=== PATIENT | male | born 1965 | race African-American/Black ===

== ENCOUNTER 2023-11-21 13:22 | Inpatient (IN) | payer OTHER ==
[2023-11-21 15:40] LABS: BASO % 0.6 % (0-2.0); EOS % 0.7 % (0-4.5); HEMATOCRIT 29.3 % (35.4-49); HEMOGLOBIN 9.1 GM/dL (11.7-16.9); LYMPH % 18.5 % (8-40); MCH 24.4 pg (25.7-33.7); MCHC 31.2 g/dl (32.0-35.9); MEAN CELL VOLUME 78.1 fl (80-96); MEAN PLT VOLUME 7.1 fl (7.5-11.1); MONO % 15.8 % (3.8-10.2); NEUT % 64.4 % (42.8-82.8); PLATELET COUNT 289 10^3/uL (134-434); RBC 3.75 M/mm3 (4.00-5.60); RDW 18.2 % (11.9-15.9); WHITE BLOOD COUNT 14.2 K/mm3 (4.0-10.0)
[2023-11-21 16:11] LABS: POTASSIUM 4.8 mmol/L (3.5-5.1)
[2023-11-21 16:12] LABS: CALCIUM 11.4 mg/dL (8.5-10.1)
[2023-11-21 16:13] LABS: ALBUMIN 2.4 g/dl (3.4-5.0)
[2023-11-21 16:16] LABS: CREATININE 5.5 mg/dL (0.55-1.3)
[2023-11-21 16:17] LABS: TOT PROT 6.3 g/dl (6.4-8.2)
[2023-11-21 16:18] LABS: BILIRUBIN,TOTAL 0.2 mg/dL (0.2-1)
[2023-11-21] MEDS ORDERED: DIPHTH,PERTUSS(ACELL),TET 0.5 ML DISP.SYRIN IM ONE ×2 (18:43→21:13)
[2023-11-21] MEDS: DIPHTH,PERTUSS(ACELL),TET 0.5 ML DISP.SYRIN IM ONE (21:19)
[2023-11-21 22:56] VITALS: BMI 19.8
[2023-11-21] MEDS: GABAPENTIN 300 MG CAPSULE PO SCH (23:12)
[2023-11-21] MEDS: cloNIDine HCL 0.1 MG TABLET PO SCH (23:12)
[2023-11-21] MEDS: clonazePAM 0.5 MG TABLET PO SCH (23:12)
[2023-11-21] MEDS: ATORVASTATIN CA 10 MG TABLET (FP) PO SCH (23:12)
[2023-11-21] MEDS: MYCOPHENOLATE MOFETIL 500 MG TABLET PO SCH (23:27)
[2023-11-21] MEDS: TACROLIMUS ANHYDROUS 5 MG CAPSULE PO SCH (23:27)
[2023-11-22 08:32] LABS: BASO % 0.4 % (0-2.0); EOS % 1.5 % (0-4.5); HEMATOCRIT 28.5 % (35.4-49); LYMPH % 19.4 % (8-40); MCH 24.6 pg (25.7-33.7); MCHC 31.7 g/dl (32.0-35.9); MEAN CELL VOLUME 77.5 fl (80-96); MEAN PLT VOLUME 7.4 fl (7.5-11.1); MONO % 16.9 % (3.8-10.2); NEUT % 61.8 % (42.8-82.8); PLATELET COUNT 291 10^3/uL (134-434); RBC 3.67 M/mm3 (4.00-5.60); RDW 18.3 % (11.9-15.9); WHITE BLOOD COUNT 13.6 K/mm3 (4.0-10.0)
[2023-11-22 08:52] LABS: POTASSIUM 4.2 mmol/L (3.5-5.1)
[2023-11-22 08:54] LABS: ALBUMIN 2.3 g/dl (3.4-5.0); BLOOD UREA NITROGEN 40.8 mg/dL (7-18)
[2023-11-22 08:57] LABS: CREATININE 5.6 mg/dL (0.55-1.3)
[2023-11-22 08:59] LABS: BILIRUBIN,TOTAL 0.3 mg/dL (0.2-1)
[2023-11-22] MEDS ORDERED: FUROSEMIDE 40 MG TABLET (FP) PO SCH (10:00)
[2023-11-22] MEDS: PANTOPRAZOLE 20 MG TABLET PO SCH (15:05)
[2023-11-22] MEDS: predniSONE 10 MG TABLET (UD) PO SCH (15:05)
[2023-11-22] MEDS: SODIUM CHLORIDE 0.45% 1,000 ML IV SCH (15:17)
[2023-11-22] MEDS: IRON SUCROSE INJECTION 200 MG in SODIUM CHLORIDE 100 ML IVPB ONE (15:18)
[2023-11-22] MEDS: POLYETHYLENE GLYCOL (HEALTHYLAX) 3350 17 GM PACKET PO SCH (15:18)
[2023-11-22] MEDS: ACETAMINOPHEN 325 MG TABLET (FP) PO PRN (18:31)
[2023-11-22] MEDS: PIPERACILLIN/TAZOB 2.25 GM 2.25 GM in DEXTROSE 5%-WATER - 50 ML IVPB SCH (19:55)
[2023-11-22 20:12] LABS: EPI CELLS 11 /uL (0-25.1); HYALINE CASTS 2 /uL (0-3.1); URINE APPEARANCE TURBID; URINE BACTERIA >9,000 /uL (0-1359); URINE BILIRUBIN NEGATIVE (NEGATIVE); URINE COLOR YELLOW; URINE GLUCOSE (UA) NEGATIVE (NEGATIVE); URINE KETONE TRACE (NEGATIVE); URINE LEUK ESTERASE 3+ (NEGATIVE); URINE NITRITE NEGATIVE (NEGATIVE); URINE PROTEIN 3+ (NEGATIVE); URINE RBC 804 /uL (0-23.9); URINE UROBILINOGEN 0.2 mg/dL (0.2-1.0); URINE WBC 3270 /uL (0-25.8)
[2023-11-23] MEDS: IRON SUCROSE INJECTION 200 MG in SODIUM CHLORIDE 100 ML IVPB ONE (10:47)
[2023-11-23 12:59] LABS: HEMATOCRIT 25.9 % (35.4-49); HEMOGLOBIN 8.3 GM/dL (11.7-16.9); MCH 24.7 pg (25.7-33.7); MCHC 32.1 g/dl (32.0-35.9); MEAN CELL VOLUME 76.9 fl (80-96); MEAN PLT VOLUME 7.4 fl (7.5-11.1); PLATELET COUNT 258 10^3/uL (134-434); RBC 3.36 M/mm3 (4.00-5.60)
[2023-11-23 13:43] LABS: POTASSIUM 4.4 mmol/L (3.5-5.1)
[2023-11-23 13:45] LABS: CALCIUM 10.1 mg/dL (8.5-10.1)
[2023-11-23 13:46] LABS: ALBUMIN 2.2 g/dl (3.4-5.0); BLOOD UREA NITROGEN 49.4 mg/dL (7-18)
[2023-11-23 13:49] LABS: CREATININE 6.4 mg/dL (0.55-1.3)
[2023-11-23 13:51] LABS: BILIRUBIN,TOTAL 0.3 mg/dL (0.2-1); TOT PROT 5.6 g/dl (6.4-8.2)
[2023-11-24] MEDS: IRON SUCROSE INJECTION 200 MG in SODIUM CHLORIDE 100 ML IVPB ONE (10:04)
[2023-11-24] MEDS: CEFTRIAXONE 1 GM in DEXTROSE 5%-WATER - 50 ML IVPB SCH (17:00)
[2023-11-24 20:46] VITALS: RESP 18
[2023-11-25 08:59] VITALS: BP 149/76; PULSE 140; TEMP 97.7
[2023-11-25] MEDS: TAMSULOSIN HCL 0.4 MG CAP PO SCH (09:09)
[2023-11-25] MEDS ORDERED: SODIUM CHLORIDE 0.45% 1,000 ML IV SCH (15:15)
== END 2023-11-25 14:58 | DRG 690 ==
LOC: JER 13:22 → JERBED 16:02 → J6S 21:46
PROVIDERS: ADMIT Internal Medicine; ATTEND Internal Medicine
DX: N39.0 Urinary tract infection, site not specified (principal); Z94.0 Kidney transplant status; I69.351 Hemiplegia and hemiparesis following cerebral infarction affecting right dominant side; Z68.1 Body mass index [BMI] 19.9 or less, adult; R64 Cachexia; N18.9 Chronic kidney disease, unspecified; D63.8 Anemia in other chronic diseases classified elsewhere; E78.5 Hyperlipidemia, unspecified; R07.9 Chest pain, unspecified; E83.52 Hypercalcemia; I12.9 Hypertensive chronic kidney disease with stage 1 through stage 4 chronic kidney disease, or unspecified chronic kidney disease
CPT/HCPCS: 36415; 70450-TC; 71045-TC-FY; 72125-TC; 73562-TC-LT-FY; 73590-TC-LT-FY; 74176-TC; 76776-TC; 80053; 80197; 81003; 82728; 83540; 83550; 83735; 84443; 84484; 85025; 85027; 87040; 87086; 87186; 90715; 93005; 93010; 93306-TC; 93975; 97162-GP; 99285-25; J1756; J7517

== ENCOUNTER 2023-11-28 10:43 | Inpatient (IN) | payer OTHER ==
[2023-11-28 11:14] VITALS: BMI 22.6
[2023-11-28 12:27] LABS: BASO % 1.1 % (0-2.0); EOS % 1.4 % (0-4.5); HEMATOCRIT 28.1 % (35.4-49); LYMPH % 20.6 % (8-40); MCH 24.7 pg (25.7-33.7); MEAN CELL VOLUME 77.3 fl (80-96); MEAN PLT VOLUME 6.6 fl (7.5-11.1); NEUT % 64.9 % (42.8-82.8); PLATELET COUNT 341 10^3/uL (134-434); RBC 3.64 M/mm3 (4.00-5.60); RDW 18.1 % (11.9-15.9); WHITE BLOOD COUNT 13.5 K/mm3 (4.0-10.0)
[2023-11-28] MEDS ORDERED: GABAPENTIN 300 MG CAPSULE ONE (12:47)
[2023-11-28] MEDS ORDERED: CEFTRIAXONE 1 GM/50 ML BAG ONE (12:47)
[2023-11-28] MEDS: GABAPENTIN 300 MG CAPSULE PO ONE (12:50)
[2023-11-28] MEDS: CEFTRIAXONE 1,000 MG in DEXTROSE 5%-WATER - 50 ML IVPB ONE (12:51)
[2023-11-28 13:12] LABS: POTASSIUM 3.7 mmol/L (3.5-5.1)
[2023-11-28 13:14] LABS: CALCIUM 10.3 mg/dL (8.5-10.1)
[2023-11-28 13:15] LABS: BLOOD UREA NITROGEN 47.5 mg/dL (7-18)
[2023-11-28 13:18] LABS: CREATININE 4.7 mg/dL (0.55-1.3)
[2023-11-28 13:19] LABS: BILIRUBIN,TOTAL 0.3 mg/dL (0.2-1); TOT PROT 6.7 g/dl (6.4-8.2)
[2023-11-28 13:21] LABS: ALBUMIN 2.7 g/dl (3.4-5.0)
[2023-11-28] MEDS: ACETAMINOPHEN 1000 MG/100 ML BAG IVPB ONE (14:20)
[2023-11-28] MEDS ORDERED: ACETAMINOPHEN INJECTION 100 ML IVPB ONE (14:41)
[2023-11-28] MEDS: GABAPENTIN 300 MG CAPSULE PO SCH (21:53)
[2023-11-28] MEDS: TACROLIMUS ANHYDROUS 5 MG CAPSULE PO SCH (21:53)
[2023-11-28] MEDS: cloNIDine HCL 0.1 MG TABLET PO SCH (21:53)
[2023-11-28] MEDS: SODIUM CHLORIDE 0.45% 1,000 ML IV SCH (21:55)
[2023-11-28] MEDS ORDERED: MYCOPHENOLATE MOFETIL 500 MG TABLET PO SCH (22:00)
[2023-11-29 09:15] LABS: BASO % 0.4 % (0-2.0); EOS % 2.1 % (0-4.5); HEMATOCRIT 27.3 % (35.4-49); HEMOGLOBIN 8.5 GM/dL (11.7-16.9); MCH 24.2 pg (25.7-33.7); MCHC 31.1 g/dl (32.0-35.9); MEAN CELL VOLUME 77.9 fl (80-96); MONO % 10.8 % (3.8-10.2); NEUT % 64.7 % (42.8-82.8); PLATELET COUNT 356 10^3/uL (134-434); RDW 18.4 % (11.9-15.9); WHITE BLOOD COUNT 15.2 K/mm3 (4.0-10.0)
[2023-11-29 09:43] LABS: POTASSIUM 3.8 mmol/L (3.5-5.1)
[2023-11-29 09:49] LABS: ALBUMIN 2.6 g/dl (3.4-5.0)
[2023-11-29 09:56] LABS: BLOOD UREA NITROGEN 47.4 mg/dL (7-18); CALCIUM 9.6 mg/dL (8.5-10.1); MAGNESIUM 1.6 mg/dL (1.8-2.4)
[2023-11-29 09:57] LABS: CREATININE 4.6 mg/dL (0.55-1.3)
[2023-11-29 09:58] LABS: PHOSPHOROUS 4.7 mg/dL (2.5-4.9)
[2023-11-29 10:00] LABS: BILIRUBIN,TOTAL 0.2 mg/dL (0.2-1); TOT PROT 6.2 g/dl (6.4-8.2)
[2023-11-29] MEDS: CEFTRIAXONE 1 GM in DEXTROSE 5%-WATER - 50 ML IVPB SCH (10:20)
[2023-11-29] MEDS: predniSONE 10 MG TABLET (UD) PO SCH (10:21)
[2023-11-29] MEDS: MAGNESIUM OXIDE 400 MG TABLET (FP) PO ONE (13:36)
[2023-11-29 15:57] LABS: EPI CELLS 1 /uL (0-25.1); HYALINE CASTS 0 /uL (0-3.1); URINE APPEARANCE CLEAR; URINE BACTERIA 115 /uL (0-1359); URINE BILIRUBIN NEGATIVE (NEGATIVE); URINE COLOR YELLOW; URINE GLUCOSE (UA) 1+ (NEGATIVE); URINE KETONE NEGATIVE (NEGATIVE); URINE LEUK ESTERASE 2+ (NEGATIVE); URINE NITRITE NEGATIVE (NEGATIVE); URINE PROTEIN 2+ (NEGATIVE); URINE RBC 25 /uL (0-23.9); URINE UROBILINOGEN 0.2 mg/dL (0.2-1.0); URINE WBC 359 /uL (0-25.8)
[2023-11-29] MEDS: ACETAMINOPHEN 325 MG TABLET (FP) PO PRN (16:09)
[2023-11-30 09:42] LABS: BASO % 0.4 % (0-2.0); EOS % 1.8 % (0-4.5); HEMATOCRIT 27.7 % (35.4-49); HEMOGLOBIN 8.8 GM/dL (11.7-16.9); LYMPH % 23.9 % (8-40); MCH 24.6 pg (25.7-33.7); MCHC 31.6 g/dl (32.0-35.9); MEAN CELL VOLUME 77.8 fl (80-96); MEAN PLT VOLUME 6.9 fl (7.5-11.1); MONO % 10.5 % (3.8-10.2); NEUT % 63.4 % (42.8-82.8); PLATELET COUNT 357 10^3/uL (134-434); RBC 3.57 M/mm3 (4.00-5.60); RDW 18.5 % (11.9-15.9); WHITE BLOOD COUNT 11.4 K/mm3 (4.0-10.0)
[2023-11-30 10:05] LABS: POTASSIUM 3.7 mmol/L (3.5-5.1)
[2023-11-30 10:07] LABS: CALCIUM 10.6 mg/dL (8.5-10.1)
[2023-11-30 10:08] LABS: ALBUMIN 2.7 g/dl (3.4-5.0)
[2023-11-30 10:11] LABS: CREATININE 4.5 mg/dL (0.55-1.3)
[2023-11-30 10:12] LABS: BILIRUBIN,TOTAL 0.2 mg/dL (0.2-1)
[2023-11-30 10:13] LABS: TOT PROT 6.5 g/dl (6.4-8.2)
[2023-11-30] MEDS: SODIUM CHLORIDE 0.45% 1,000 ML IV SCH (13:53)
[2023-12-01] MEDS: VITAMIN B COMP W-C 1 EA TABLET (NEPHRO-VITE) PO SCH (09:55)
[2023-12-01 10:06] LABS: HEMATOCRIT 25.9 % (35.4-49); MCH 24.2 pg (25.7-33.7); MCHC 31.1 g/dl (32.0-35.9); MEAN CELL VOLUME 77.7 fl (80-96); MEAN PLT VOLUME 7.4 fl (7.5-11.1); PLATELET COUNT 348 10^3/uL (134-434); RBC 3.33 M/mm3 (4.00-5.60); RDW 18.4 % (11.9-15.9); WHITE BLOOD COUNT 11.7 K/mm3 (4.0-10.0)
[2023-12-01 10:20] LABS: POTASSIUM 4.5 mmol/L (3.5-5.1)
[2023-12-01 10:25] LABS: CALCIUM 9.9 mg/dL (8.5-10.1)
[2023-12-01 10:26] LABS: ALBUMIN 2.6 g/dl (3.4-5.0); MAGNESIUM 2.3 mg/dL (1.8-2.4)
[2023-12-01 10:29] LABS: BLOOD UREA NITROGEN 55.9 mg/dL (7-18); CREATININE 4.4 mg/dL (0.55-1.3)
[2023-12-01 10:31] LABS: BILIRUBIN,TOTAL 0.2 mg/dL (0.2-1); TOT PROT 6.6 g/dl (6.4-8.2)
[2023-12-01 14:06] VITALS: TEMP 98.6
[2023-12-01 14:08] VITALS: BP 112/74; PULSE 63; RESP 17
== END 2023-12-01 15:31 | DRG 690 ==
LOC: JER 10:43 → JERBED 14:36 → J5S 18:40
PROVIDERS: ADMIT Internal Medicine; ATTEND Internal Medicine
DX: N12 Tubulo-interstitial nephritis, not specified as acute or chronic (principal); Z94.0 Kidney transplant status; I12.9 Hypertensive chronic kidney disease with stage 1 through stage 4 chronic kidney disease, or unspecified chronic kidney disease; N18.9 Chronic kidney disease, unspecified; D72.829 Elevated white blood cell count, unspecified; E78.5 Hyperlipidemia, unspecified; R50.9 Fever, unspecified; D64.9 Anemia, unspecified; Z86.73 Personal history of transient ischemic attack (TIA), and cerebral infarction without residual deficits
CPT/HCPCS: 36415; 76775-TC; 80053; 81003; 82310; 83735; 83970; 84100; 84155; 84165; 85025; 85027; 87040; 87086; 87635; 99285-25; J0131

== ENCOUNTER 2024-02-01 18:12 | Inpatient (IN) | payer OTHER ==
[2024-02-01] MEDS ORDERED: VANCOMYCIN HCL 1,500 MG in DEXTROSE 5%-WATER - 500 ML IVPB ONE (18:39)
[2024-02-01] MEDS ORDERED: ACETAMINOPHEN INJECTION 100 ML IVPB ONE (18:42)
[2024-02-01] MEDS ORDERED: PIPERACILLIN/TAZOB 4.5 GM 4.5 GM/100 ML BAG IVPB ONE (18:43)
[2024-02-01] MEDS: ACETAMINOPHEN 1000 MG/100 ML BAG IVPB ONE (18:53)
[2024-02-01] MEDS: LACTATED RINGERS SOLUTION 1000 ML INFUS.BAG IV ONE ×2 (18:53→22:59)
[2024-02-01] MEDS: PIPERACILLIN/TAZOB 4.5 GM 4.5 GM in DEXTROSE 5%-WATER 100 ML IVPB ONE (18:54)
[2024-02-01 18:59] LABS: HEMATOCRIT 13.8 % (35.4-49); MCH 25.4 pg (25.7-33.7); MCHC 31.3 g/dl (32.0-35.9); MEAN PLT VOLUME 7.4 fl (7.5-11.1); PLATELET COUNT 219 10^3/uL (134-434); RDW 19.2 % (11.9-15.9); WHITE BLOOD COUNT 29.9 K/mm3 (4.0-10.0)
[2024-02-01 19:05] LABS: HEMOGLOBIN 4.3 GM/dL (11.7-16.9)
[2024-02-01 19:10] LABS: INR 1.15 (0.83-1.09); PROTHROMBIN TIME (PATIENT) 13.2 SEC (9.7-13.0)
[2024-02-01 19:11] LABS: EPI CELLS 13 /uL (0-25.1); HYALINE CASTS 12 /uL (0-3.1); PH,URINE 5.5 (5.0-8.0); URINE APPEARANCE TURBID; URINE BACTERIA 71 /uL (0-1359); URINE BILIRUBIN NEGATIVE (NEGATIVE); URINE COLOR RED; URINE GLUCOSE (UA) 2+ (NEGATIVE); URINE KETONE NEGATIVE (NEGATIVE); URINE LEUK ESTERASE 3+ (NEGATIVE); URINE NITRITE NEGATIVE (NEGATIVE); URINE PROTEIN 3+ (NEGATIVE); URINE UROBILINOGEN 0.2 mg/dL (0.2-1.0); URINE WBC 18620 /uL (0-25.8)
[2024-02-01 19:12] LABS: ACTIVATED PTT 24.1 SECONDS (25.2-36.5)
[2024-02-01 19:20] LABS: VENOUS BASE EXCESS -11.4 mmol/L (-2-2); VENOUS O2 SATURATION 32.8 % (70-80); VENOUS PCO2 31.3 mmHg (38-52); VENOUS PH 7.278 (7.310-7.410)
[2024-02-01 19:34] LABS: CHLORIDE 104 mmol/L (98-107); POTASSIUM 4.6 mmol/L (3.5-5.1); SODIUM 133 mmol/L (136-145)
[2024-02-01 19:35] LABS: ANISOCYTOSIS 1+; MACROCYTOSIS 0
[2024-02-01 19:37] LABS: ANION GAP 13 mmol/L (4-13); CALCIUM 8.5 mg/dL (8.5-10.1); CO2 17 mmol/L (21-32); GLUCOSE,RANDOM 311 mg/dL (74-106)
[2024-02-01 19:40] LABS: CREATININE 5.4 mg/dL (0.55-1.3); SGPT/ALT 9 U/L (13-61)
[2024-02-01 19:41] LABS: SGOT/AST 11 U/L (15-37)
[2024-02-01 19:42] LABS: BILIRUBIN,TOTAL 0.3 mg/dL (0.2-1); TOT PROT 5.4 g/dl (6.4-8.2)
[2024-02-01 19:43] LABS: ALK PHOS 51 U/L (45-117)
[2024-02-01 19:50] LABS: BLOOD UREA NITROGEN 116.6 mg/dL (7-18)
[2024-02-01] MEDS: VANCOMYCIN PREMIX 1.5 GM 1,500 MG/300 ML BAG IVPB ONE (20:01)
[2024-02-01 20:19] LABS: URINE RBC 5845.5 /uL (0-23.9); YEAST PRESENT (NEGATIVE)
[2024-02-01] MEDS ORDERED: SODIUM BICARBONATE 8.4% 50 MEQ/50 ML DISP.SYRIN ONE (20:59)
[2024-02-01] MEDS: SODIUM BICARBONATE 4.2% 5 MEQ/10 ML DISP.SYRIN IVPUSH ONE ×2 (21:08→21:10)
[2024-02-01] MEDS ORDERED: PANTOPRAZOLE SODIUM 40 MG VIAL ONE (21:10)
[2024-02-01] MEDS: PANTOPRAZOLE SODIUM 40 MG VIAL IVPUSH ONE (21:33)
[2024-02-01 22:28] LABS: HEMATOCRIT 18.2 % (35.4-49); MCH 27.4 pg (25.7-33.7); MCHC 33.3 g/dl (32.0-35.9); MEAN CELL VOLUME 82.5 fl (80-96); MEAN PLT VOLUME 7.4 fl (7.5-11.1); PLATELET COUNT 163 10^3/uL (134-434); RBC 2.21 M/mm3 (4.00-5.60); RDW 16.4 % (11.9-15.9); WHITE BLOOD COUNT 27.5 K/mm3 (4.0-10.0)
[2024-02-01 22:32] LABS: HEMOGLOBIN 6.1 GM/dL (11.7-16.9)
[2024-02-01 22:40] VITALS: BMI 29.5
[2024-02-01] MEDS: PHYTONADIONE 10 MG/1 ML AMP IVPB ONE (22:56)
[2024-02-01] MEDS: CHLORHEXIDINE GLUCONATE 4% CLEANSER FOR DECOLONIZATION TP SCH (22:56)
[2024-02-01] MEDS: CALCIUM GLUCONATE 10% - 1,000 MG/10 ML VIAL IVPB ONE (22:56)
[2024-02-01] MEDS: MUPIROCIN 2% TOPICAL OINTMENT FOR DECOLONIZATION NS SCH (22:57)
[2024-02-01] MEDS: PANTOPRAZOLE SODIUM 80 MG in SODIUM CHLORIDE 100 ML IVPB SCH (22:59)
[2024-02-01 23:47] LABS: VENOUS BASE EXCESS -7.4 mmol/L (-2-2); VENOUS O2 SATURATION 45.7 % (70-80); VENOUS PCO2 34.5 mmHg (38-52); VENOUS PH 7.33 (7.310-7.410)
[2024-02-02 00:28] LABS: LACTIC ACID 2.5 mmol/L (0.4-2.0)
[2024-02-02] MEDS: PIPERACILLIN/TAZOB 2.25 GM 2.25 GM in DEXTROSE 5%-WATER - 50 ML IVPB SCH ×2 (00:59→17:14)
[2024-02-02] MEDS: ACETAMINOPHEN 1000 MG/100 ML BAG IVPB PRN (01:00)
[2024-02-02] MEDS ORDERED: PIPERACILLIN/TAZOB 2.25 GM 2.25 GM in DEXTROSE 5%-WATER - 50 ML IVPB SCH (02:00)
[2024-02-02 06:05] LABS: HEMATOCRIT 20.3 % (35.4-49); MCH 28.2 pg (25.7-33.7); MCHC 34.6 g/dl (32.0-35.9); MEAN CELL VOLUME 81.3 fl (80-96); MEAN PLT VOLUME 7.7 fl (7.5-11.1); PLATELET COUNT 167 10^3/uL (134-434); RDW 16.1 % (11.9-15.9); WHITE BLOOD COUNT 23.8 K/mm3 (4.0-10.0)
[2024-02-02 06:17] LABS: CHLORIDE 107 mmol/L (98-107); POTASSIUM 4.7 mmol/L (3.5-5.1); SODIUM 138 mmol/L (136-145)
[2024-02-02 06:19] LABS: INR 1.17 (0.83-1.09); PROTHROMBIN TIME (PATIENT) 13.4 SEC (9.7-13.0)
[2024-02-02 06:20] LABS: ALBUMIN 1.9 g/dl (3.4-5.0); ANION GAP 9 mmol/L (4-13); CALCIUM 8.4 mg/dL (8.5-10.1); CO2 21 mmol/L (21-32); GLUCOSE,RANDOM 201 mg/dL (74-106); MAGNESIUM 1.6 mg/dL (1.8-2.4)
[2024-02-02 06:22] LABS: CREATININE 5.1 mg/dL (0.55-1.3); PHOSPHOROUS 4.5 mg/dL (2.5-4.9); SGOT/AST 14 U/L (15-37); SGPT/ALT 11 U/L (13-61)
[2024-02-02 06:25] LABS: BILIRUBIN,TOTAL 0.7 mg/dL (0.2-1)
[2024-02-02 06:26] LABS: ALK PHOS 49 U/L (45-117)
[2024-02-02] MEDS: MAGNESIUM 1GM/D5W - 1 GM/100 ML IVPB IVPB ONE (06:54)
[2024-02-02 09:14] LABS: ANISOCYTOSIS 1+; MACROCYTOSIS 1+
[2024-02-02] MEDS ORDERED: dilTIAZem HCL 60 MG TABLET PO SCH (12:45)
[2024-02-02 13:19] LABS: HEMATOCRIT 23.7 % (35.4-49); HEMOGLOBIN 8.2 GM/dL (11.7-16.9); MCH 27.9 pg (25.7-33.7); MCHC 34.5 g/dl (32.0-35.9); MEAN CELL VOLUME 80.9 fl (80-96); MEAN PLT VOLUME 7.7 fl (7.5-11.1); PLATELET COUNT 178 10^3/uL (134-434); RBC 2.93 M/mm3 (4.00-5.60); RDW 16.4 % (11.9-15.9); WHITE BLOOD COUNT 19.8 K/mm3 (4.0-10.0)
[2024-02-02] MEDS: cloNIDine HCL 0.1 MG TABLET PO SCH (13:30)
[2024-02-02 13:47] LABS: ANISOCYTOSIS 1+; MACROCYTOSIS 1+
[2024-02-02] MEDS ORDERED: LABETALOL HCL 5 MG/1 ML (100MG/20 ML VIAL) IVPUSH ONE (15:15)
[2024-02-02] MEDS: INSULIN ASPART SLIDING SCALE (NOVOLOG) 1 VIAL SQ SCH (17:14)
[2024-02-02 21:30] LABS: HEMATOCRIT 23.4 % (35.4-49); HEMOGLOBIN 8.1 GM/dL (11.7-16.9); MCH 27.6 pg (25.7-33.7); MCHC 34.6 g/dl (32.0-35.9); MEAN CELL VOLUME 79.9 fl (80-96); MEAN PLT VOLUME 7.2 fl (7.5-11.1); PLATELET COUNT 170 10^3/uL (134-434); RBC 2.93 M/mm3 (4.00-5.60); RDW 16.6 % (11.9-15.9); WHITE BLOOD COUNT 17.5 K/mm3 (4.0-10.0)
[2024-02-03] MEDS: ACETAMINOPHEN 1000 MG/100 ML BAG IVPB PRN (01:51)
[2024-02-03] MEDS: VANCOMYCIN PREMIX 1.5 GM 1,500 MG/300 ML BAG IVPB ONE (03:05)
[2024-02-03 06:40] LABS: INR 1.18 (0.83-1.09); PROTHROMBIN TIME (PATIENT) 13.3 SEC (9.7-13.0)
[2024-02-03 06:41] LABS: ACTIVATED PTT 24.7 SECONDS (25.2-36.5)
[2024-02-03 06:56] LABS: HEMATOCRIT 22.2 % (35.4-49); HEMOGLOBIN 7.5 GM/dL (11.7-16.9); MCH 27.5 pg (25.7-33.7); MCHC 33.7 g/dl (32.0-35.9); MEAN CELL VOLUME 81.6 fl (80-96); MEAN PLT VOLUME 7.6 fl (7.5-11.1); PLATELET COUNT 164 10^3/uL (134-434); RBC 2.72 M/mm3 (4.00-5.60); RDW 16.6 % (11.9-15.9); WHITE BLOOD COUNT 15.1 K/mm3 (4.0-10.0)
[2024-02-03 07:03] LABS: ALBUMIN 1.8 g/dl (3.4-5.0); CALCIUM 8.6 mg/dL (8.5-10.1)
[2024-02-03 07:04] LABS: BLOOD UREA NITROGEN 92.8 mg/dL (7-18); MAGNESIUM 1.8 mg/dL (1.8-2.4)
[2024-02-03 07:05] LABS: CREATININE 5.5 mg/dL (0.55-1.3)
[2024-02-03 07:06] LABS: PHOSPHOROUS 4.6 mg/dL (2.5-4.9)
[2024-02-03 07:07] LABS: BILIRUBIN,TOTAL 0.4 mg/dL (0.2-1); TOT PROT 4.9 g/dl (6.4-8.2)
[2024-02-03 09:12] LABS: ANISOCYTOSIS 2+; MACROCYTOSIS 1+; OVALOCYTE 1+
[2024-02-03 12:57] LABS: HEMATOCRIT 22.8 % (35.4-49); HEMOGLOBIN 7.6 GM/dL (11.7-16.9); MCH 27.7 pg (25.7-33.7); MCHC 33.4 g/dl (32.0-35.9); MEAN CELL VOLUME 83.1 fl (80-96); MEAN PLT VOLUME 7.4 fl (7.5-11.1); PLATELET COUNT 186 10^3/uL (134-434); RBC 2.74 M/mm3 (4.00-5.60); RDW 16.9 % (11.9-15.9); WHITE BLOOD COUNT 15.5 K/mm3 (4.0-10.0)
[2024-02-03 13:39] LABS: ANISOCYTOSIS 3+; MACROCYTOSIS 0
[2024-02-03 16:25] VITALS: BP 154/94; PULSE 81; RESP 20; TEMP 98.4
== END 2024-02-03 17:24 | disposition short-term general hospital (02) | DRG 698 ==
LOC: JER 18:12 → JERBED 18:43 → JICU 22:09
PROVIDERS: ADMIT Family Medicine; ATTEND Family Medicine
PROC: 30233N1 Transfusion of Nonautologous Red Blood Cells into Peripheral Vein, Percutaneous Approach (ICD-10-PCS; 2024-02-01)
PROC: 05HM33Z Insertion of Infusion Device into Right Internal Jugular Vein, Percutaneous Approach (ICD-10-PCS; principal; 2024-02-02)
PROC: B543ZZA Ultrasonography of Right Jugular Veins, Guidance (ICD-10-PCS; 2024-02-02)
DX: T86.11 Kidney transplant rejection (principal); A41.89 Other specified sepsis; N39.0 Urinary tract infection, site not specified; E87.20 Acidosis, unspecified; K62.5 Hemorrhage of anus and rectum; I82.411 Acute embolism and thrombosis of right femoral vein; Z94.0 Kidney transplant status; I12.9 Hypertensive chronic kidney disease with stage 1 through stage 4 chronic kidney disease, or unspecified chronic kidney disease; N18.9 Chronic kidney disease, unspecified; M71.22 Synovial cyst of popliteal space [Baker], left knee; D64.9 Anemia, unspecified; L89.152 Pressure ulcer of sacral region, stage 2; E78.5 Hyperlipidemia, unspecified; R50.9 Fever, unspecified; D72.829 Elevated white blood cell count, unspecified; R31.0 Gross hematuria; Z86.718 Personal history of other venous thrombosis and embolism
CPT/HCPCS: 0241U-QW; 36415; 36430; 70450-TC; 71045-TC-FY; 80053; 80197; 81003; 82803; 82962; 83036; 83605; 83735; 84100; 84484; 85025; 85027; 85610; 85730; 86850; 86900; 86901; 86922; 87040; 87077; 87086; 87186; 93005; 93010; 93970-TC; 99291; G0480; J0131; P9037; P9038; P9058

== ENCOUNTER 2024-04-02 14:04 | Inpatient (IN) | payer OTHER ==
[2024-04-02 17:41] LABS: BASO % 0.5 % (0-2.0); EOS % 0.6 % (0-4.5); HEMATOCRIT 29.9 % (35.4-49); HEMOGLOBIN 9.8 GM/dL (11.7-16.9); LYMPH % 18.3 % (8-40); MCH 27.4 pg (25.7-33.7); MCHC 32.7 g/dl (32.0-35.9); MEAN CELL VOLUME 83.7 fl (80-96); MEAN PLT VOLUME 7.5 fl (7.5-11.1); MONO % 8.1 % (3.8-10.2); NEUT % 72.5 % (42.8-82.8); PLATELET COUNT 250 10^3/uL (134-434); RBC 3.57 M/mm3 (4.00-5.60); RDW 15.9 % (11.9-15.9); WHITE BLOOD COUNT 11.6 K/mm3 (4.0-10.0)
[2024-04-02 18:06] LABS: CHLORIDE 106 mmol/L (98-107); SODIUM 134 mmol/L (136-145)
[2024-04-02 18:08] LABS: CALCIUM 10.6 mg/dL (8.5-10.1)
[2024-04-02 18:09] LABS: BLOOD UREA NITROGEN 64.9 mg/dL (7-18); CO2 21 mmol/L (21-32); GLUCOSE,RANDOM 153 mg/dL (74-106)
[2024-04-02 18:12] LABS: CREATININE 7.4 mg/dL (0.55-1.3); SGOT/AST 61 U/L (15-37)
[2024-04-02 18:13] LABS: BILIRUBIN,TOTAL 0.4 mg/dL (0.2-1)
[2024-04-02 18:14] LABS: TOT PROT 7.7 g/dl (6.4-8.2)
[2024-04-02 18:15] LABS: ALK PHOS 52 U/L (45-117)
[2024-04-02 18:24] LABS: ANION GAP 8 mmol/L (4-13); POTASSIUM 8.7 mmol/L (3.5-5.1); SGPT/ALT 19 U/L (13-61)
[2024-04-02] MEDS: SODIUM ZIRCONIUM CYCLOSILICATE (LOKELMA) 10 GM PACKET PO SCH (19:10)
[2024-04-02] MEDS ORDERED: SODIUM ZIRCONIUM CYCLOSILICATE (LOKELMA) 10 GM PACKET ONE (19:31)
[2024-04-02 20:10] LABS: CHLORIDE 107 mmol/L (98-107); POTASSIUM 4.9 mmol/L (3.5-5.1); SODIUM 136 mmol/L (136-145)
[2024-04-02 20:11] LABS: CALCIUM 11.1 mg/dL (8.5-10.1)
[2024-04-02 20:12] LABS: ANION GAP 9 mmol/L (4-13); BLOOD UREA NITROGEN 67.3 mg/dL (7-18); CO2 20 mmol/L (21-32); GLUCOSE,RANDOM 221 mg/dL (74-106)
[2024-04-02 20:16] LABS: CREATININE 7.6 mg/dL (0.55-1.3)
[2024-04-02] MEDS ORDERED: cloNIDine HCL 0.1 MG TABLET ONE (22:15)
[2024-04-02] MEDS ORDERED: ATORVASTATIN CA 10 MG TABLET (FP) ONE (22:16)
[2024-04-02] MEDS ORDERED: HEPARIN NA (PORCINE) 5,000 UNITS/ML 1ML VIAL ONE (22:16)
[2024-04-02] MEDS ORDERED: GABAPENTIN 300 MG CAPSULE ONE (22:16)
[2024-04-02] MEDS: cloNIDine HCL 0.1 MG TABLET PO SCH (22:21)
[2024-04-02] MEDS: ATORVASTATIN CA 10 MG TABLET (FP) PO SCH (22:21)
[2024-04-02] MEDS: GABAPENTIN 300 MG CAPSULE PO SCH (22:21)
[2024-04-02] MEDS: HEPARIN NA (PORCINE) 5,000 UNITS/ML 1ML VIAL SQ SCH (22:26)
[2024-04-02] MEDS: TACROLIMUS ANHYDROUS 5 MG CAPSULE PO SCH (22:50)
[2024-04-03 09:10] LABS: POTASSIUM 3.8 mmol/L (3.5-5.1)
[2024-04-03 09:26] LABS: BASO % 0.5 % (0-2.0); EOS % 1.4 % (0-4.5); HEMATOCRIT 26.1 % (35.4-49); HEMOGLOBIN 8.9 GM/dL (11.7-16.9); LYMPH % 33.9 % (8-40); MCH 28.2 pg (25.7-33.7); MCHC 34.2 g/dl (32.0-35.9); MEAN CELL VOLUME 82.4 fl (80-96); MEAN PLT VOLUME 7.7 fl (7.5-11.1); MONO % 11.9 % (3.8-10.2); NEUT % 52.3 % (42.8-82.8); PLATELET COUNT 216 10^3/uL (134-434); RBC 3.17 M/mm3 (4.00-5.60); RDW 15.2 % (11.9-15.9)
[2024-04-03 09:42] LABS: ALBUMIN 2.8 g/dl (3.4-5.0)
[2024-04-03 09:45] LABS: BLOOD UREA NITROGEN 71.6 mg/dL (7-18)
[2024-04-03 09:46] LABS: BILIRUBIN,TOTAL 0.3 mg/dL (0.2-1)
[2024-04-03 09:47] LABS: TOT PROT 6.5 g/dl (6.4-8.2)
[2024-04-03 09:48] LABS: CREATININE 7.4 mg/dL (0.55-1.3)
[2024-04-03 09:50] LABS: CALCIUM 9.8 mg/dL (8.5-10.1)
[2024-04-03 09:51] LABS: MAGNESIUM 1.9 mg/dL (1.8-2.4)
[2024-04-03] MEDS: predniSONE 10 MG TABLET (UD) PO SCH (10:24)
[2024-04-03 11:47] LABS: PROTHROMBIN TIME (PATIENT) 11.5 SEC (9.7-13.0)
[2024-04-04 10:15] LABS: CHLORIDE 107 mmol/L (98-107); POTASSIUM 3.5 mmol/L (3.5-5.1); SODIUM 139 mmol/L (136-145)
[2024-04-04 10:24] LABS: CALCIUM 10.1 mg/dL (8.5-10.1)
[2024-04-04 10:27] LABS: BLOOD UREA NITROGEN 80.6 mg/dL (7-18); GLUCOSE,RANDOM 195 mg/dL (74-106); SGPT/ALT 12 U/L (13-61)
[2024-04-04 10:28] LABS: ANION GAP 10 mmol/L (4-13); CO2 21 mmol/L (21-32)
[2024-04-04 10:29] LABS: BILIRUBIN,TOTAL 0.2 mg/dL (0.2-1)
[2024-04-04 10:30] LABS: SGOT/AST 12 U/L (15-37)
[2024-04-04 10:31] LABS: ALBUMIN 2.9 g/dl (3.4-5.0)
[2024-04-04 10:33] LABS: CREATININE 7.7 mg/dL (0.55-1.3); TOT PROT 6.5 g/dl (6.4-8.2)
[2024-04-04 10:34] LABS: ALK PHOS 49 U/L (45-117)
[2024-04-04] MEDS ORDERED: SODIUM CHLORIDE 250 ML IV PRN (12:36)
[2024-04-05 10:15] LABS: HEMOGLOBIN 8.5 GM/dL (11.7-16.9); MCH 27.9 pg (25.7-33.7); MCHC 33.9 g/dl (32.0-35.9); MEAN CELL VOLUME 82.4 fl (80-96); MEAN PLT VOLUME 7.8 fl (7.5-11.1); PLATELET COUNT 206 10^3/uL (134-434); RBC 3.03 M/mm3 (4.00-5.60); RDW 15.4 % (11.9-15.9); WHITE BLOOD COUNT 9.8 K/mm3 (4.0-10.0)
[2024-04-05 10:33] LABS: POTASSIUM 3.6 mmol/L (3.5-5.1)
[2024-04-05 10:40] LABS: CALCIUM 9.4 mg/dL (8.5-10.1)
[2024-04-05 10:41] LABS: ALBUMIN 2.8 g/dl (3.4-5.0); BLOOD UREA NITROGEN 88.2 mg/dL (7-18)
[2024-04-05 10:44] LABS: CREATININE 7.4 mg/dL (0.55-1.3)
[2024-04-05 10:45] LABS: BILIRUBIN,TOTAL 0.2 mg/dL (0.2-1)
[2024-04-05 10:47] LABS: TOT PROT 6.4 g/dl (6.4-8.2)
[2024-04-05] MEDS ORDERED: HEPARIN NA (PORCINE) 5,000 UNITS/ML 1ML VIAL ONE (13:57)
[2024-04-05] MEDS ORDERED: LIDOCAINE HCL 1%, 10 MG/ML (20ML VIAL) ONE (13:57)
[2024-04-05] MEDS ORDERED: MIDAZOLAM HCL 2 MG/2 ML SINGLE DOSE VIAL ONE ×2 (19:46→19:58)
[2024-04-05] MEDS ORDERED: PROPOFOL 20 ML ONE (20:02)
[2024-04-05] MEDS ORDERED: ceFAZolin SODIUM 1 GM VIAL ONE (20:06)
[2024-04-05] MEDS: LIDOCAINE HCL 1%, 10 MG/ML (20ML VIAL) NR ONE ×2 (20:07→20:09)
[2024-04-05] MEDS: ceFAZolin SODIUM 1 GM VIAL IVPB ONE (20:07)
[2024-04-05] MEDS ORDERED: FLUMAZENIL 0.5 MG/5 ML VIAL ONE (20:18)
[2024-04-05] MEDS ORDERED: ONDANSETRON 4 MG/2 ML VIAL IVPUSH PRN (20:24)
[2024-04-05] MEDS ORDERED: SODIUM CHLORIDE 250 ML IV PRN (20:56)
[2024-04-05] MEDS: TACROLIMUS ANHYDROUS 5 MG CAPSULE PO SCH (22:59)
[2024-04-05] MEDS: HEPARIN NA (PORCINE) 5,000 UNITS/ML 1ML VIAL SQ SCH (22:59)
[2024-04-05] MEDS: cloNIDine HCL 0.1 MG TABLET PO SCH (22:59)
[2024-04-05] MEDS: GABAPENTIN 300 MG CAPSULE PO SCH (23:00)
[2024-04-05] MEDS: SODIUM CHLORIDE 1,000 ML IV SCH (23:00)
[2024-04-06] MEDS: predniSONE 10 MG TABLET (UD) PO SCH (12:40)
[2024-04-06] MEDS: ATORVASTATIN CA 10 MG TABLET (FP) PO SCH (22:31)
[2024-04-08 08:09] LABS: CHLORIDE 110 mmol/L (98-107); POTASSIUM 4.8 mmol/L (3.5-5.1); SODIUM 141 mmol/L (136-145)
[2024-04-08 08:14] LABS: HEMATOCRIT 25.7 % (35.4-49); HEMOGLOBIN 8.5 GM/dL (11.7-16.9); MCH 27.7 pg (25.7-33.7); MCHC 32.9 g/dl (32.0-35.9); MEAN CELL VOLUME 84.2 fl (80-96); MEAN PLT VOLUME 7.8 fl (7.5-11.1); PLATELET COUNT 183 10^3/uL (134-434); RBC 3.06 M/mm3 (4.00-5.60); RDW 15.5 % (11.9-15.9); WHITE BLOOD COUNT 11.1 K/mm3 (4.0-10.0)
[2024-04-08 08:15] LABS: CALCIUM 9.5 mg/dL (8.5-10.1)
[2024-04-08 08:16] LABS: ALBUMIN 2.7 g/dl (3.4-5.0); ANION GAP 9 mmol/L (4-13); BLOOD UREA NITROGEN 83.4 mg/dL (7-18); CO2 22 mmol/L (21-32); GLUCOSE,RANDOM 194 mg/dL (74-106)
[2024-04-08 08:19] LABS: CREATININE 6.2 mg/dL (0.55-1.3); SGOT/AST 14 U/L (15-37)
[2024-04-08 08:21] LABS: BILIRUBIN,TOTAL 0.4 mg/dL (0.2-1); SGPT/ALT < 6 U/L (13-61); TOT PROT 6.4 g/dl (6.4-8.2)
[2024-04-08 08:22] LABS: ALK PHOS 44 U/L (45-117)
[2024-04-08 09:29] LABS: ANISOCYTOSIS 0; HELMET CELLS 0; HOWELL-JOLLY BODIES 0; MACROCYTOSIS 0; OVALOCYTE 0; ROULEAU 0; SICKELED CELLS 0; TARGET CELLS 0; TEAR DROP CELLS 0; TOXIC GRANULATION 0
[2024-04-08] MEDS ORDERED: SODIUM CHLORIDE 250 ML IV PRN (22:23)
[2024-04-09 11:04] LABS: HEMATOCRIT 25.8 % (35.4-49); HEMOGLOBIN 8.5 GM/dL (11.7-16.9); MCH 27.5 pg (25.7-33.7); MCHC 32.9 g/dl (32.0-35.9); MEAN CELL VOLUME 83.6 fl (80-96); MEAN PLT VOLUME 8.3 fl (7.5-11.1); PLATELET COUNT 182 10^3/uL (134-434); RBC 3.09 M/mm3 (4.00-5.60); RDW 15.8 % (11.9-15.9); WHITE BLOOD COUNT 11.1 K/mm3 (4.0-10.0)
[2024-04-09 11:07] LABS: POTASSIUM 4.4 mmol/L (3.5-5.1)
[2024-04-09 11:12] LABS: ALBUMIN 2.8 g/dl (3.4-5.0); CALCIUM 9.3 mg/dL (8.5-10.1)
[2024-04-09 11:17] LABS: BILIRUBIN,TOTAL 0.3 mg/dL (0.2-1); TOT PROT 6.5 g/dl (6.4-8.2)
[2024-04-09 12:29] LABS: ANISOCYTOSIS 0; HELMET CELLS 0; HOWELL-JOLLY BODIES 0; MACROCYTOSIS 0; OVALOCYTE 0; ROULEAU 0; SICKELED CELLS 0; TARGET CELLS 0; TEAR DROP CELLS 0; TOXIC GRANULATION 0
[2024-04-10] MEDS: INSULIN ASPART SLIDING SCALE (NOVOLOG) 1 VIAL SQ SCH (12:10)
[2024-04-10] MEDS ORDERED: SODIUM CHLORIDE 250 ML IV PRN (16:26)
[2024-04-11 10:00] LABS: HEMATOCRIT 25.5 % (35.4-49); HEMOGLOBIN 8.5 GM/dL (11.7-16.9); MCH 27.9 pg (25.7-33.7); MCHC 33.2 g/dl (32.0-35.9); MEAN CELL VOLUME 83.9 fl (80-96); PLATELET COUNT 161 10^3/uL (134-434); RBC 3.04 M/mm3 (4.00-5.60); RDW 15.8 % (11.9-15.9); WHITE BLOOD COUNT 10.3 K/mm3 (4.0-10.0)
[2024-04-11 10:37] LABS: POTASSIUM 3.7 mmol/L (3.5-5.1)
[2024-04-11 10:38] LABS: CALCIUM 9.4 mg/dL (8.5-10.1)
[2024-04-11 10:39] LABS: BLOOD UREA NITROGEN 88.4 mg/dL (7-18)
[2024-04-11 10:42] LABS: CREATININE 5.2 mg/dL (0.55-1.3)
[2024-04-11] MEDS: EPOETIN ALFA-EPBX 10,000 UNIT/ML VIAL IVPUSH ONE (10:56)
[2024-04-11] MEDS: GABAPENTIN 100 MG CAPSULE PO SCH (14:08)
[2024-04-11 15:26] VITALS: BMI 22.7
[2024-04-12 06:15] VITALS: RESP 18
[2024-04-12 14:02] VITALS: TEMP 98.6
[2024-04-12 22:52] VITALS: BP 130/92; PULSE 73
== END 2024-04-13 00:15 | DRG 698 ==
LOC: JER 14:04 → JERBED 16:21 → J8W 04-03 04:22
PROVIDERS: ADMIT Internal Medicine; ATTEND Internal Medicine
PROC: B543ZZA Ultrasonography of Right Jugular Veins, Guidance (ICD-10-PCS; 2024-04-05)
PROC: 5A1D70Z Performance of Urinary Filtration, Intermittent, Less than 6 Hours Per Day (ICD-10-PCS; 2024-04-05)
PROC: 5A1D70Z Performance of Urinary Filtration, Intermittent, Less than 6 Hours Per Day (ICD-10-PCS; 2024-04-05)
PROC: 5A1D70Z Performance of Urinary Filtration, Intermittent, Less than 6 Hours Per Day (ICD-10-PCS; 2024-04-05)
PROC: 05HM33Z Insertion of Infusion Device into Right Internal Jugular Vein, Percutaneous Approach (ICD-10-PCS; principal; 2024-04-05 16:30)
DX: T86.12 Kidney transplant failure (principal); N18.6 End stage renal disease; R53.2 Functional quadriplegia; I12.0 Hypertensive chronic kidney disease with stage 5 chronic kidney disease or end stage renal disease; D84.821 Immunodeficiency due to drugs; N17.9 Acute kidney failure, unspecified; K92.2 Gastrointestinal hemorrhage, unspecified; E44.0 Moderate protein-calorie malnutrition; Z94.0 Kidney transplant status; E78.5 Hyperlipidemia, unspecified; D64.9 Anemia, unspecified; R53.1 Weakness; R50.9 Fever, unspecified; Y83.8 Other surgical procedures as the cause of abnormal reaction of the patient, or of later complication, without mention of misadventure at the time of the procedure; Z86.718 Personal history of other venous thrombosis and embolism; Z68.22 Body mass index [BMI] 22.0-22.9, adult; Z79.899 Other long term (current) drug therapy; Z99.2 Dependence on renal dialysis
CPT/HCPCS: 36415; 71045-TC-FY; 76000-TC-FY; 76775-TC; 76856-TC; 80048; 80053; 80197; 82962; 83735; 84443; 85025; 85027; 85610; 86704; 86705; 86803; 87340; 87517; 93986; 93990-TC; 94760; 97116-GP; 97161-GP; 99285-25; C1750; J1644; Q5106

== ENCOUNTER 2025-05-20 16:06 | Observation (INO) | payer OTHER ==
[2025-05-20] MEDS ORDERED: ACETAMINOPHEN INJECTION 100 ML ONE (17:02)
[2025-05-20] MEDS: ACETAMINOPHEN 1000 MG/100 ML BAG IVPB ONE (17:23)
[2025-05-20 17:51] LABS: ABSOLUTE IMMATURE GRANULOCYTES 0.12 x10^3/uL (0.0-0.031); BASOPHILS # 0.04 x10^3/uL (0.01-0.08); EOSINOPHIL % 0.5 % (0.8-7.0); EOSINOPHILS # 0.04 x10^3/uL (0.04-0.54); MCHC 31.5 g/dl (32.3-36.5); MEAN CELL VOLUME 91.6 fl (79.0-92.2); MEAN PLT VOLUME 10.0 fl (9.4-12.4); MONOCYTE # 0.76 x10^3/uL (0.30-0.82); MONOCYTE % 8.7 % (5.3-12.2); RDW 16.8 % (12.2-16.4)
[2025-05-20 18:30] LABS: GLUCOSE,RANDOM 188.0 mg/dL (74-106); TOT PROT 8.6 g/dl (6.4-8.2)
[2025-05-20 18:32] LABS: CO2 27.0 mmol/L (21-32)
[2025-05-20 18:33] LABS: ALK PHOS 118.0 U/L (40-150)
[2025-05-20 18:36] LABS: CREATININE 4.7 mg/dL (0.55-1.3); SGOT/AST 30.0 U/L (5-34); SGPT/ALT 24.0 U/L (0-55)
[2025-05-20 19:05] LABS: HIV INTERPRETATION NEGATIVE (NEGATIVE)
[2025-05-20 19:07] LABS: HCV DIAGNOSTIC IN-HOUSE W/RFLX NON-REACTIVE (NONREACTIVE)
[2025-05-20] MEDS: IOHEXOL (OMNIPAQUE IV) 350 MG/ML - 100 ML BOTTLE PO ONE (20:09)
[2025-05-21 07:34] LABS: ABSOLUTE IMMATURE GRANULOCYTES 0.08 x10^3/uL (0.0-0.031); BASOPHILS # 0.03 x10^3/uL (0.01-0.08); EOSINOPHIL % 2.0 % (0.8-7.0); EOSINOPHILS # 0.15 x10^3/uL (0.04-0.54); MCHC 31.2 g/dl (32.3-36.5); MEAN CELL VOLUME 91.2 fl (79.0-92.2); MEAN PLT VOLUME 9.8 fl (9.4-12.4); MONOCYTE # 0.87 x10^3/uL (0.30-0.82); MONOCYTE % 11.7 % (5.3-12.2); RDW 16.5 % (12.2-16.4)
[2025-05-21 07:46] LABS: GLUCOSE,RANDOM 165.0 mg/dL (74-106)
[2025-05-21 07:48] LABS: CO2 26.0 mmol/L (21-32)
[2025-05-21 07:52] LABS: CREATININE 6.41 mg/dL (0.55-1.3)
[2025-05-21] MEDS: INSULIN ASPART SLIDING SCALE (NOVOLOG) 1 VIAL SQ SCH (07:57)
[2025-05-21 08:10] LABS: INR 1.26 (0.83-1.09); PROTHROMBIN TIME (PATIENT) 13.7 SEC (9.7-13.0)
[2025-05-21 08:12] LABS: ACTIVATED PTT 30.6 SECONDS (25.2-36.5)
[2025-05-21] MEDS ORDERED: BISACODYL 10 MG SUPP.RECT PR ONE (08:15)
[2025-05-21] MEDS: predniSONE 10 MG TABLET (UD) PO SCH (11:20)
[2025-05-21] MEDS: TACROLIMUS ANHYDROUS 5 MG CAPSULE PO SCH (11:20)
[2025-05-21] MEDS: BISACODYL 10 MG SUPP.RECT PR ONE (11:21)
[2025-05-21] MEDS: SEVELAMER CARBONATE 800 MG TAB (FP) PO SCH (11:36)
[2025-05-21] MEDS ORDERED: SODIUM CHLORIDE 250 ML IV PRN (13:19)
[2025-05-21 17:57] VITALS: BMI 26.7
[2025-05-22 08:14] LABS: MCHC 31.4 g/dl (32.3-36.5); MEAN CELL VOLUME 91.0 fl (79.0-92.2); MEAN PLT VOLUME 9.3 fl (9.4-12.4); RDW 16.3 % (12.2-16.4)
[2025-05-22 09:31] VITALS: TEMP 98.4
[2025-05-22 09:35] VITALS: PULSE 98
[2025-05-22 09:52] LABS: GLUCOSE,RANDOM 147 mg/dL (74-106); TOT PROT 6.9 g/dl (6.4-8.2)
[2025-05-22 09:53] LABS: CO2 25 mmol/L (21-32)
[2025-05-22 09:54] LABS: ALK PHOS 85 U/L (40-150)
[2025-05-22 09:57] LABS: CREATININE 8.23 mg/dL (0.55-1.3); SGOT/AST 20 U/L (5-34); SGPT/ALT 14 U/L (0-55)
[2025-05-22 12:19] VITALS: BP 145/90
[2025-05-22 13:20] VITALS: RESP 16
== END 2025-05-22 14:28 ==
LOC: JER 16:06 → JERBED 05-21 03:45 → J6S 05-21 06:24 → J6W TELE 05-21 06:29
PROVIDERS: ADMIT Internal Medicine; ATTEND Internal Medicine
PROC: 3E033NZ Introduction of Analgesics, Hypnotics, Sedatives into Peripheral Vein, Percutaneous Approach (ICD-10-PCS; principal; 2025-05-21)
PROC: 3E013VG Introduction of Insulin into Subcutaneous Tissue, Percutaneous Approach (ICD-10-PCS; 2025-05-21)
DX: I16.0 Hypertensive urgency (principal); I12.0 Hypertensive chronic kidney disease with stage 5 chronic kidney disease or end stage renal disease; K59.09 Other constipation; Z79.01 Long term (current) use of anticoagulants; J44.9 Chronic obstructive pulmonary disease, unspecified; E11.22 Type 2 diabetes mellitus with diabetic chronic kidney disease; N18.6 End stage renal disease; Z99.2 Dependence on renal dialysis; T86.11 Kidney transplant rejection; Z86.73 Personal history of transient ischemic attack (TIA), and cerebral infarction without residual deficits; Z86.718 Personal history of other venous thrombosis and embolism
CPT/HCPCS: 36415; 71045-TC-FY; 74176-TC; 80048; 80053; 82962; 83690; 83735; 84100; 84484; 85025; 85027; 85610; 85730; 86803; 87340; 87389; 93005; 93010; 93971-TC-RT; 96372; 96374; 99285-25; G0378